=== PATIENT | male | born 2000 | race Caucasian/White ===

== ENCOUNTER 2024-09-07 10:57 | Outpatient (OUT) | payer BC, SELFPAY ==
--- NOTE | 2024-09-07 11:06 | ECG_ITS ---
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
[2024-09-07 11:59] LABS: Basophils Percent Auto 0.4 % (0.2-2.0); Eosinophils Absolute Auto 0.1 10^3/uL (0.0-0.7); Eosinophils Percent Auto 0.9 % (0.9-7.0); Hematocrit 48.7 % (42.0-54.0); Hemoglobin 16.5 g/dL (14.0-18.0); Immature Granulocytes Abs Auto 0.02 10^3/uL (0.00-0.03); Immature Granulocytes Pct Auto 0.2 % (0.0-0.5); Lymphocytes Absolute Auto 2.1 10^3/uL (1.2-3.8); Lymphocytes Percent Auto 22.6 % (20.5-60.0); Mean Corpuscular HGB Conc 33.9 g/dL (29.9-35.2); Mean Corpuscular Hemoglobin 29.9 pg (25.9-34.0); Mean Corpuscular Volume 88.4 fL (80.0-94.0); Mean Platelet Volume 9.4 fL (9.5-13.5); Monocytes Absolute Auto 0.6 10^3/uL (0.3-0.8); Monocytes Percent Auto 6.2 % (1.7-12.0); Neutrophils Absolute Auto 6.5 10^3/uL (1.4-6.5); Neutrophils Percent Auto 69.7 % (43.0-75.0); Platelet Count 268 10^3/uL (150-450); Red Blood Count 5.51 10^6/uL (4.70-6.10); Red Cell Distribution Width 11.6 % (11.0-15.0); White Blood Count 9.3 10^3/uL (4.0-11.0)
[2024-09-07 12:13] LABS: INR 0.98; Partial Thromboplastin Time 30.5 sec (22.3-36.2); Prothrombin Time 10.4 sec (9.0-11.6)
[2024-09-07 12:22] LABS: Anion Gap 12.4; BUN Creatinine Ratio 11.4; Calcium 9.1 mg/dL (8.5-10.1); Carbon Dioxide 27.5 mmol/L (21.0-32.0); Chloride 104 mmol/L (98-107); Estimated GFR (African America >60 (>=60 mL/min/1.73m^2); Estimated GFR (Non-African Ame >60 (>=60 mL/min/1.73m^2); Glucose 147 mg/dL (74-106); Potassium 3.9 mmol/L (3.5-5.1); Sodium 140 mmol/L (136-145)
== END 2024-09-07 10:58 | disposition home or self-care (01) ==
PROVIDERS: Visit Provider Urology
DX: Z01.810 Encounter for preprocedural cardiovascular examination (principal); Z01.812 Encounter for preprocedural laboratory examination; N47.1 Phimosis; N48.1 Balanitis
CPT/HCPCS: 80048; 85025; 85610; 85730; 93005

== ENCOUNTER 2024-09-24 07:59 | Day surgery (SDC) | payer BC, SELFPAY ==
[2024-09-07 11:51] VITALS: BP 134/90; PULSE 80; TEMP 36.4; O2SAT 100; BMI 38.8
[2024-09-24] VITALS (10 sets, daily range): BP systolic 97–153; BP diastolic 59–94; PULSE 72–107; TEMP 36.2–36.5; O2SAT 93–100; BMI 36.9
--- OUTSIDE RECORDS SUMMARY | 2024-09-24 08:04 | XMS_ITS | CCD ---
Author Organization [facility] Care Team Providers Care Ship Officer Name Role Phone NO FAMILY, PHYSICIAN Primary Care Provider DO Fredrick Swenson Emergency Provider [phone] Fredrick Morris Attending Unavailable Fredrick Morris Admitting Unavailable NO FAMILY, PHYSICIAN Primary Care Unavailable Alexander Hall Admitting Michael cm NO FAMILY, PHYSICIAN Primary Care Unavailable Alexander Hall Attending MD Alexander Rodriguez Attending Provider Adrien PÉREZ Attending Unavailable Adrien PÉREZ Attending Unavailable Adrien PÉREZ Attending Unavailable Allergies Allergy Classification Reported Allergen(s) Allergy Type Date of Onset Reaction(s) Facility (1 source) No Known Medication Allergies; Translations: [No Known Medication Allergies] Propensity to adverse reactions (disorder) [facility] Repository Medications Current Medications Medication Drug Class(es) Dates Sig (Normalized) Sig (Original) Blood-Glucose Meter misc (1 source) Start: 09-03-2024 Blood-Glucose Meter misc Active 0 .ROUTE .MEDSUPPLY September 03, 2024 12:00am as directed, defer to insurance preferred Tirzepatide (1 source) Start: 09-03-2024 Tirzepatide (Mounjaro) 2.5 mg/0.5 mL pen injector Active 2.5 MG SUBCUT every week 2 September 03, 2024 12:00am will have Voucher for 4 weeks, then copay card for ongoing rx Completed/Discontinued Medications Medication Drug Class(es) Dates Sig (Normalized) Sig (Original) metFORMIN hydrochloride 500 mg oral tablet (4 sources) Biguanide Start: 12-26-2023 End: 09-03-2024 take 1 tablet by mouth twice daily Metformin 500 mg tablet Discontinued 500 MG PO Twice daily 60 December 25, 2023 11:00pm September 03, 2024 9:00am Problems Problem Classification Problem Date Documented Date Episodic/Chronic Cardiac dysrhythmias (7 sources) Palpitations; Translations: [Palpitations] Onset: 12-26-2023 12-26-2023 Episodic Diabetes mellitus with complications (4 sources) Hyperglycemia due to type 2 diabetes mellitus; Translations: [Type 2 diabetes mellitus with hyperglycemia] 09-03-2024 Chronic Diabetes mellitus without complication (5 sources) Diabetes mellitus; Translations: [Type 2 diabetes mellitus without complications] 12-26-2023 Chronic Diabetes mellitus without complication (5 sources) Prediabetes; Translations: [Prediabetes] Onset: 06-10-2024 01-14-2024 Episodic Inflammatory conditions of male genital organs (2 sources) Balanitis; Translations: [Balanitis] Onset: 06-10-2024 Chronic Nutritional deficiencies (2 sources) Vitamin D deficiency; Translations: [Vitamin D deficiency, unspecified] 09-03-2024 Chronic Other male genital disorders (2 sources) Phimosis; Translations: [Phimosis] 06-10-2024 Episodic Other male genital disorders (1 source) Phimosis; Translations: [Redundant prepuce and phimosis] 09-03-2024 Episodic Results Test Name Value Interpretation Reference Range Facility HbA1c HPLC (Bld) [Mass fract ion]on 09-03-2024 HbA1c (Bld) [Mass fraction] Hemoglobin A1c/Hemoglobin.tota l in Blood by HPLC [facility] No Panel Informationon 09-03 Bedside Glucose [address] [facility] Ambulatory Visit Summaryon 1 Ambulatory Visit Summary Ambulatory Visi t Summary SCOTT DEAN Jim :2000 Visit Date:06/10/2024 Ambulatory Visit Instructions Your Diagnosis Phimosis Balanitis Glucosuria Your Care Team Attending Physician - Adrien PÉREZ MD Procedures Performed None. Discharge Vitals Heart Rate (Peripheral) 77 Respiratory Rate 18 Blood Pressure 148/95 Height 71 in Height 180 cm Weight 277.64 lb Weight 126.2 kg BMI 38.95 What to do next You Need to Schedule the Following Appointments Follow Up with ISMAEL PERES, Adrien Gaxiola, URL When: Where: [facility] [address] , [place] [address]- Allergies No Known Medication Allergies Problems Ongoing - Any problem that you are currently receiving treatment for. Balanitis Diabetes Phimosis Patient Survey You may receive a survey via text or e-mail asking about your office visit. Please share your experience with us by completing your survey. We appreciate your feedback and thank you for choosing us for your care. Education Materials Balanitis Balanitis is swelling and irritation of the head of the penis (glans penis). Balanitis occurs most often among males who have not had their foreskin removed (uncircumcised). In uncircumcised males, the condition may also cause inflammation of the skin around the foreskin. Balanitis sometimes causes scarring of the penis or foreskin, which can require surgery. This condition may develop because of an infection or another medical condition. Untreated balanitis can increase the risk of penile cancer. What are the causes? Common causes of this condition include: ? Irritation and lack of airflow due to fluid (smegma) that can build up on the glans penis. ? Poor personal hygiene, especially in uncircumcised males. Not cleaning the glans penis and foreskin well can result in a buildup of bacteria, viruses, and yeast, which can lead to infection and inflammation. Other causes include: ? Chemical irritation from products such as soaps or shower gels, especially those that have fragrance. Chemical irritation can also be caused by condoms, personal lubricants, petroleum jelly, spermicides, fabric softeners, or laundry detergents. ? Skin conditions, such as eczema, dermatitis, and psoriasis. ? Allergies to medicines, such as tetracycline and sulfa drugs. What increases the risk? The following factors may make you more likely to develop this condition: ? Being an uncircumcised male. ? Having diabetes. ? Having other medical conditions, including liver cirrhosis, congestive heart failure, or kidney disease. ? Having infections, such as candidiasis, HPV (human papillomavirus), herpes simplex, gonorrhea, or syphilis. ? Having a tight foreskin that is difficult to pull back (retract) past the glans penis. ? Being severely obese. ? History of reactive arthritis. What are the signs or symptoms? Symptoms of this condition include: ? Discharge from under the foreskin, and pain or difficulty retracting the foreskin. ? A bad smell or itchiness on the penis. ? Tenderness, redness, and swelling of the glans penis. ? A rash or sores on the glans penis or foreskin. ? Inability to get an erection due to pain. ? Trouble urinating. ? Scarring of the penis or foreskin, in some cases. How is this diagnosed? This condition may be diagnosed based on a physical exam and tests of a swab of discharge to check for bacterial or fungal infection. You may also have blood tests to check for: ? Viruses that can cause balanitis. ? A high blood sugar (glucose) level. This could be a sign of diabetes, which can increase the risk of balanitis. How is this treated? Treatment for this condition depends on the cause. Treatment may include: ? Improving personal hygiene. Your health care provider may recommend sitting in a bath of warm water that is deep enough to cover your hips and buttocks (sitz bath). ? Medicines such as: ? Creams or ointments to reduce swelling (steroids) or to treat an infection. ? Antibiotic medicine. ? Antifungal medicine. ? Having surgery to remove or cut the foreskin (circumcision). This may be done if you have scarring on the foreskin that makes it difficult to retract. ? Controlling other medical problems that may be causing your condition or making it worse. Follow these instructions at home: Medicines ? Take lqcy-kdh-gmhaave and prescription medicines only as told by your health care provider. ? If you were prescribed an antibiotic medicine, use it as told by your health care provider. Do not stop using the antibiotic even if you start to feel better. General instructions ? Do not have sex until the condition clears up, or until your health care provider approves. ? Keep your penis clean and dry. Take sitz baths as recommended by your health care provider. ? Avoid (more content not included)... Normal [facility]PG ECG *OFFICE ONLY*on FPG ECG *OFFICE ONLY* [facility] Main [place] [address] [place] [id number] Electrocardiograph Report Signed Patient: Scott Dean MR#: [id number] [birth year] : 2000 Acct:[id number] Age/Sex: 23 / M ADM Date: 01/14/24 Loc: EKGCARDIO Room: Type: [facility] Attending Dr: Alexander Hall MD Ordering Provider: Alexander Hall MD Date of Service: 01/14/2404/01/1306 ECG/FPG ECG *OFFICE ONLY*: R00.2 - Palpitations Copies to: Test Reason : Blood Pressure : / mmHG Vent. Rate : 090 BPM Atrial Rate : 090 BPM P-R Int : 144 ms QRS Dur : 092 ms QT Int : 336 ms P-R-T Axes : 047 097 030 degrees QTc Int : 411 ms Normal sinus rhythm Rightward axis Borderline ECG When compared with ECG of 26-DEC-2023 07:43, Criteria for Inferior infarct are no longer present Confirmed by Alexander Hall ([id number]) on 01/15/2024 8:58:06 AM Referred By: Electronically Signed By:Alexander Hall Transcribed By: MUS Signed By Alexander Hall MD 01/15/24 0858 Normal [facility] Basic Metabolic Panelon 12-08 Anion gap [Moles/Vol] 8.0 mmol/L Normal 6.0-15.0 [facility] Comment on above: Performed By: #### C BC, HS TROP, BMP #### [facility] [address] [id number] [place] Calcium [Mass/Vol] 9.6 mg/dL Normal 8.6-10.3 [facility] Comment on above: Performed By: #### C BC, HS TROP, BMP #### [facility] [address] [id number] [place] Chloride [Moles/Vol] 101 mmol/L Normal 98-107 [facility] Comment on above: Performed By: #### C BC, HS TROP, BMP #### [facility] [address] [place] [address] [place] CO2 [Moles/Vol] 28.7 mmol/L Normal 21.0-31.0 [facility] Comment on above: Performed By: #### C BC, HS TROP, BMP #### [facility] [address] [place] [address] [place] Creatinine [Mass/Vol] 0.66 mg/dL Low 0.70-1.30 [facility] Comment on above: Performed By: #### C BC, HS TROP, BMP #### [place] [address] [place] Creatinine Clr Calc Pharmacy 230.95 Normal [facility] Comment on above: Result Comment: PERF ORMED BY: [place] [address] PATHOLOGIST ACUTE DIALYSIS NURSE IRIS GOVEA M.D. Performed By: #### C BC, HS TROP, BMP #### [place] [address] [place] GFR/1.73 sq M.predicted MDRD (S/P/Bld) [Vol rate/Area] mL/min/{1.73_m2} Normal [facility] Comment on above: Performed By: #### C BC, HS TROP, BMP #### [place] [address] [place] Glucose [Mass/Vol] 231 mg/dL High 70-100 [facility] Comment on above: Result Comment: [place] Glucose Reference Range is dependent on time and content of last meal. Glucose of more than 200 mg/dL in a nonstressed, ambulatory subject supports the diagnosis of Diabetes Mellitus. ADA recommended reference range Performed By: #### C BC, HS TROP, BMP #### [place] [address] [place] Potassium [Moles/Vol] 3.7 mmol/L Normal 3.5-5.1 [facility] Comment on above: Performed By: #### C BC, HS TROP, BMP #### [place] [address] [place] Sodium [Moles/Vol] 134 mmol/L Low 136-145 [facility] Comment on above: Performed By: #### C BC, HS TROP, BMP #### [place] [address] [place] Urea nitrogen [Mass/Vol] 12 mg/dL Normal 7-25 [facility] Comment on above: Performed By: #### C BC, HS TROP, BMP #### [facility] [address] Basophils Auto (Bld) [#/Vol] Ordered By: Fredrick Morris on 12-26-2023 Basophils (Bld) [#/Vol] 0.0 10*3/uL 0.0-0.[address] [facility] Basophils/100 WBC Auto (Bld) Ordered By: Fredrick Morrsi on 12-26-2023 Basophils/100 WBC (Bld) 0.4 % . [facility] COVID CepheidOrdered By: Marietta Morris on 12-26-2023 SARS-CoV-2 (COVID-19) Ab IA Ql Negative Negative [facility] Comment on above: This is a duplicate Cepheid Xpert Xpress CoV-2/Flu/RSV Plus RNA by RT-PCR result to be used for statistical tracking purpose only. SARS-CoV-2 (COVID-19) RNA MIRTA+probe Ql (Unsp spec) [facility] COVID-19 / Flu A/B / RSV PCR on 12-26-2023 SARS-CoV-2 (COVID-19) RNA MIRTA+probe Ql (Unsp spec) COVID-19 Cepheid Result Negative for SARS-CoV-2 RNA by RT-PCR Flu A Cepheid Result Negative for Flu A RNA by RT-PCR Flu B Cepheid Result Negative for Flu B RNA by RT-PCR RSV Cepheid Result Negative for RSV RNA by RT-PCR COVID19 Blank Space Reference: Negative COVID19 Blank Space Cepheid Disclaimer The Cepheid Xpert Xpress CoV-2/Flu/RSV Plus has Cepheid Disclaimer not been FDA cleared or approved; this test has Cepheid Disclaimer been authorized by FDA under an EUA for use by Cepheid Disclaimer authorized laboratories; this test has been Cepheid Disclaimer authorized only for the simultaneous qualitative Cepheid Disclaimer detection and differentiation of nucleic acids from Cepheid Disclaimer SARS-CoV-2, influenza A, influenza B, and Cepheid Disclaimer respiratory syncytial virus (RSV), and not for any Cepheid Disclaimer other viruses or pathogens; and this test is only Cepheid Disclaimer authorized for the duration of the declaration that Cepheid Disclaimer circumstances exist justifying the authorization of Cepheid Disclaimer emergency use of in vitro diagnostic tests for Cepheid Disclaimer detection and/or diagnosis of COVID-19 under Cepheid Disclaimer Section 564(b)(1) of the Act, 21 U.S.C. 360bbb- Cepheid Disclaimer 3(b)(1), unless the authorization is terminated or Cepheid Disclaimer revoked sooner. PERFORMED BY: [address] [id number] PATHOLOGIST ACUTE DIALYSIS NURSE IRIS GOVEA M.D. Normal [facility] Comment on above: Performed By: #### C EPHEID NEG, COVID19 FLU RSV #### [address] [address] [facility] Calcium [Mass/volume] in Ser um or PlasmaOrdered By: Fredrick Morris on 12-26-2023 Calcium [Mass/Vol] 9.6 mg/dL 8.6-10.3 [facility] Carbon dioxide, total [Moles /volume] in Serum or PlasmaOrdered By: Fredrick Morris on 12-26-2023 CO2 [Moles/Vol] 28.7 mmol/L 21.0-31.0 [facility] Cepheid COVID PCR Negativeon 12-26-2023 SARS-CoV-2 (COVID-19) RNA MIRTA+probe Ql (Unsp spec) Negative Normal Negative [facility] Comment on above: Result Comment: This is a duplicate Cepheid Xpert Xpress CoV-2/Flu/RSV Plus RNA by RT-PCR result to be used for statistical tracking purpose only. PERFORMED BY: [address] [id number] PATHOLOGIST ACUTE DIALYSIS NURSE IRIS GOVEA M.D. Performed By: #### C EPHEID NEG, COVID19 FLU RSV #### [address] Chloride [Moles/volume] in S barbara or PlasmaOrdered By: Fredrick Morris on 12-26-2023 Chloride [Moles/Vol] 101 mmol/L 98-[address] [facility] Complete Blood Count Auto Di ffon 12-26-2023 Basophils (Bld) [#/Vol] 0.0 10*3/uL Normal 0.0-0.2 [facility] Comment on above: Result Comment: PERF ORMED BY: [place] [address] PATHOLOGIST ACUTE DIALYSIS NURSE IRIS GOVEA M.D. Performed By: #### C BC, HS TROP, BMP #### [address] Basophils/100 WBC (Bld) 0.4 % Normal . [facility] Comment on above: Performed By: #### C BC, HS TROP, BMP #### [place] [address] [place] Eosinophils (Bld) [#/Vol] 0.1 10*3/uL Normal 0.0-0.45 [facility] Comment on above: Performed By: #### C BC, HS TROP, BMP #### [place] [address] [place] Eosinophils/100 WBC (Bld) 1.2 % Normal . [facility] Comment on above: Performed By: #### C BC, HS TROP, BMP #### [address] Erythrocyte distribution width (RBC) [Ratio] 12.8 % Normal 12.0-14.8 [facility] Comment on above: Performed By: #### C BC, HS TROP, BMP #### [address] Hematocrit (Bld) [Volume fraction] 45.3 % Normal 38.8-50.0 [facility] Comment on above: Performed By: #### C BC, HS TROP, BMP #### [address] Hemoglobin (Bld) [Mass/Vol] 15.3 g/dL Normal 13.0-17.0 [facility] Comment on above: Performed By: #### C BC, HS TROP, BMP #### [address] Lymphocytes (Bld) [#/Vol] 1.9 10*3/uL Normal 1.00-4.8 [facility] Comment on above: Performed By: #### C BC, HS TROP, BMP #### [address] Lymphocytes/100 WBC (Bld) 24.7 % Normal . [facility] Comment on above: Performed By: #### C BC, HS TROP, BMP #### [address] MCH (RBC) [Entitic mass] 29.5 pg Normal 27.5-35.2 [facility] Comment on above: Performed By: #### C BC, HS TROP, BMP #### [address] MCV (RBC) [Entitic vol] 87.4 fL Normal 83.5-101 [facility] Comment on above: Performed By: #### C BC, HS TROP, BMP #### [address] Mean Corpuscular HGB Conc 33.8 g/dL Normal 32.5-35.6 [facility] Comment on above: Performed By: #### C BC, HS TROP, BMP #### [address] Monocytes (Bld) [#/Vol] 0.7 10*3/uL Normal 0.0-0.8 [facility] Comment on above: Performed By: #### C BC, HS TROP, BMP #### [place] [id number] [place] Monocytes/100 WBC (Bld) 18.25 % Normal 0.00-20.00 [facility] Comment on above: Performed By: #### C BC, HS TROP, BMP #### [facility] [address] [place] [address] [place] Monocytes/100 WBC (Bld) 8.5 % Normal . [facility] Comment on above: Performed By: #### C BC, HS TROP, BMP #### [place] [address] [place] Neutrophils (Bld) [#/Vol] 5.1 10*3/uL Normal 1.8-7.7 [facility] Comment on above: Performed By: #### C BC, HS TROP, BMP #### [address] Neutrophils/100 WBC (Bld) 65.2 % Normal . [facility] Comment on above: Performed By: #### C BC, HS TROP, BMP #### [place] [address] [place] NRBC% 0.2 /100{WBC} Normal 0-0.5 [facility] Comment on above: Performed By: #### C BC, HS TROP, BMP #### [place] [address] [place] Platelet mean volume (Bld) [Entitic vol] 7.7 fL Normal 6.6-10.1 [facility] Comment on above: Performed By: #### C BC, HS TROP, BMP #### [place] [address] [place] Platelets (Bld) [#/Vol] 234 10*3/uL Normal 150-450 [facility] Comment on above: Performed By: #### C BC, HS TROP, BMP #### [place] [address] [place] RBC (Bld) [#/Vol] 5.18 10*6/uL Normal 3.90-5.60 [facility] Comment on above: Performed By: #### C BC, HS TROP, BMP #### [facility] [address] [place] [address] [place] WBC (Bld) [#/Vol] 7.8 10*3/uL Normal 4.1-10.5 [facility] Comment on above: Performed By: #### C BC, HS TROP, BMP #### [facility] [address] Creatinine [Mass/volume] in Serum or PlasmaOrdered By: Fredrick Morris on 12-26-2023 Creatinine [Mass/Vol] 0.66 mg/dL 0.70-1.30 [facility] ECG 12 lead ECGon 12-26-2023 ECG 12 lead ECG [facility] Main [place] [address] [place] [address] Electrocardiograph Report Signed Patient: Scott Dean MR#: [id number] [birth year] : 2000 Acct:[id number] Age/Sex: 23 / M ADM Date: 12/26/23 Loc: ER Room: Type: [facility] Attending Dr: Ordering Provider: Fredrick Morris DO Date of Service: 12/26/23 ECG/ECG 12 lead ECG: Upper Respiratory Infection Copies to: Test Reason : Blood Pressure : / mmHG Vent. Rate : 077 BPM Atrial Rate : 077 BPM P-R Int : 136 ms QRS Dur : 100 ms QT Int : 360 ms P-R-T Axes : 015 043 -07 degrees QTc Int : 407 ms Normal sinus rhythm Moderate voltage criteria for LVH, may be normal variant Inferior infarct , age undetermined Abnormal ECG No previous ECGs available Confirmed by FREDRICK MORRIS DO ([id number]) on 12/27/2023 6:11:01 AM Referred By: Electronically Signed By:FREDRICK MORRIS DO Transcribed By: MUS Signed By Fredrick Morrsi DO 12/26 0611 Normal [facility] Eosinophils Auto (Bld) [#/Vo l]Ordered By: Fredrick Morris on 12-26-2023 Eosinophils (Bld) [#/Vol] 0.1 10*3/uL 0.0-0.[address] [facility] Eosinophils/100 WBC Auto (Bl d)Ordered By: Fredrick Morris on 12-26-2023 Eosinophils/100 WBC (Bld) 1.2 % . [facility] Erythrocyte distribution wid th Auto (RBC) [Ratio]Ordered By: Fredrick Morris on 12-26-2023 Erythrocyte distribution width (RBC) [Ratio] 12.8 % 12.0-14.[address] [facility] Glucose [Mass/volume] in Ser um or PlasmaOrdered By: Fredrick Morris on 12-26-2023 Glucose [Mass/Vol] 231 mg/dL 70-100 [facility] Comment on above: ADA recommended refe rence rangeRandom Glucose Reference Range is dependent on time and content of last meal. Glucose of more than 200 mg/dL in a nonstressed, ambulatory subject supports the diagnosis of Diabetes Mellitus. Hematocrit Auto (Bld) [Volum e fraction]Ordered By: Fredrick Morris on 12-26-2023 Hematocrit (Bld) [Volume fraction] 45.3 % 38.8-50.[address] [facility] Hemoglobin [Mass/volume] in BloodOrdered By: Fredrick Morris on 12-26-2023 Hemoglobin (Bld) [Mass/Vol] 15.3 g/dL 13.0-17.[address] [facility] Leukocytes [#/volume] correc willow for nucleated erythrocytes in Blood by Automated counOrdered By: Fredrick Morris on 12-26-2023 WBC corrected for nucl RBC Auto (Bld) [#/Vol] 7.8 10*3/uL 4.1-10.[address] [facility] Lymphocytes Auto (Bld) [#/Vo l]Ordered By: Fredrick Morris on 12-26-2023 Lymphocytes (Bld) [#/Vol] 1.9 10*3/uL 1.00-4.[address] [facility] Lymphocytes/100 WBC Auto (Bl d)Ordered By: Fredrick Morris on 12-26-2023 Lymphocytes/100 WBC (Bld) 24.7 % . [facility] MCH Auto (RBC) [Entitic mass ]Ordered By: Fredrick Morris on 12-26-2023 MCH (RBC) [Entitic mass] 29.5 pg 27.5-35.[address] [facility] MCHC Auto (RBC) [Mass/Vol]Or dered By: Fredrick Morris on 12-26-2023 MCHC (RBC) [Mass/Vol] 33.8 g/dL 32.5-35.6 [facility] MCV Auto (RBC) [Entitic vol] Ordered By: Fredrick Morris on 12-26-2023 MCV (RBC) [Entitic vol] 87.4 fL 83.5-101 [facility] Monocyte distribution width [Entitic volume] in Blood by AutomatedOrdered By: Fredrick Morris on 12-26-2023 Monocyte distribution width Auto (Bld) [Entitic vol] 18.25 % 0.00-20.[address] [facility] Monocytes Auto (Bld) [#/Vol] Ordered By: Fredrick Morris on 12-26-2023 Monocytes (Bld) [#/Vol] 0.7 10*3/uL 0.0-0.[address] [facility] Monocytes/100 WBC Auto (Bld) Ordered By: Fredrick Morris on 12-26-2023 Monocytes/100 WBC (Bld) 8.5 % . [facility] Neutrophils Auto (Bld) [#/Vo l]Ordered By: Fredrick Morris on 12-26-2023 Neutrophils (Bld) [#/Vol] 5.1 10*3/uL 1.8-7.[address] [facility] Neutrophils/100 WBC Auto (Bl d)Ordered By: Fredrick Morris on 12-26-2023 Neutrophils/100 WBC (Bld) 65.2 % . [facility] No Panel InformationOrdered By: Fredrick Morris on 12-26-2023 Estimated GFR (CKD-EPI) > 60.0 mL/Min [facility] Pharm[facility] Creatinine Clearance (Chem 230.[address] [facility] Nucleated erythrocytes [Pres ence] in Blood by Automated countOrdered By: Fredrick Morris on 12-26-2023 Nucleated RBC Auto Ql (Bld) 0.2 /100{WBC} 0-0.[address] [facility] Platelet mean volume Auto (B ld) [Entitic vol]Ordered By: Fredrick Morris on 12-26-2023 Platelet mean volume (Bld) [Entitic vol] 7.7 fL 6.6-10.[address] [facility] Platelets Auto (Bld) [#/Vol] Ordered By: Fredrick Morris on 12-26-2023 Platelets (Bld) [#/Vol] 234 10*3/uL 150-[address] [facility] Potassium [Moles/volume] in Serum or PlasmaOrdered By: Fredrick Morris on 12-26-2023 Potassium [Moles/Vol] 3.7 mmol/L 3.5-5.1 [facility] RBC Auto (Bld) [#/Vol]Ordere d By: Fredrick Morris on 12-26-2023 RBC (Bld) [#/Vol] 5.18 10*6/uL 3.90-5.60 [facility] Serum or plasma anion gap de terminationOrdered By: Fredrick Morris on 12-26-2023 Anion gap [Moles/Vol] 8.0 mmol/L 6.0-15.0 [facility] Sodium [Moles/volume] in Ser um or PlasmaOrdered By: Fredrick Morris on 12-26-2023 Sodium [Moles/Vol] 134 mmol/L 136-145 [facility] Troponin I High Sensitivityo n 12-26-2023 Troponin I High Sensitivity 3.0 pg/mL Normal 0.0-20.0 [facility] Comment on above: Result Comment: PERF ORMED BY: [place] [address] PATHOLOGIST ACUTE DIALYSIS NURSE IRIS GOVEA M.D. Performed By: #### C BC, HS TROP, BMP #### [address] Troponin I.cardiac [Mass/vol ume] in Serum or Plasma by Detection limit <= 0.01 ng/Ordered By: Fredrick Morris on 12-26-2023 Troponin I.cardiac DL <= 0.01 ng/mL [Mass/Vol] 3.0 pg/mL 0.0-20.[address] [facility] Urea nitrogen [Mass/volume] in Serum or PlasmaOrdered By: Fredrick Morris on 12-26-2023 Urea nitrogen [Mass/Vol] 12 mg/dL 7-[address] [facility] WBC Auto (Bld) [#/Vol]Ordere d By: Fredrick Morris on 12-26-2023 WBC (Bld) [#/Vol] 7.8 10*3/uL 4.1-10.5 [facility] XR chest 1V portableon 12-25 XR chest 1V portable [facility] Main [address] [address] XRay Report Signed Patient: Scott Dean MR#: [id number] : 2000 Acct:[id number] Age/Sex: 23 / M ADM Date: 12/26/23 Loc: ER Room: Type: [facility] ER Attending Dr: Copies to: Fredrick Morris DO Ordering Provider: Fredrick Morris DO Date of Service: 12/26/23 XR/XR chest 1V portable: Upper Respiratory Infection PORTABLE AP ERECT CHEST 0811 hours CLINICAL HISTORY: Palpitations COMPARISON: None Assessment is slightly limited by large body habitus. The heart is within normal limits. There is no vascular congestion. No consolidation is noted. There is no effusion or pneumothorax. The osseous structures are intact. XR/XR chest 1V portable IMPRESSION: NO ACUTE FINDINGS Impression dictated by: Ginny Samayoa M.D.12/26/2023 8:24 AM Dictation Location: [place] [address] Transcribed By: [facility] 12/26/23823 Dictated By: Ginny Samayoa MD 12/26/23822 Signed By: 12/26/23823 Normal [facility] Vital Signs Date Time Vital Sign Value Performing Clinician Faci brigitte 09-03-2024 08:46-0500 Body height 176.53 cm [facility] 09-03-2024 08:46-0500 Body mass index (BMI) [Ratio] 38.9 kg/m2 [facility] 09-03-2024 08:46-0500 Body weight 121.16 kg [facility] 09-03-2024 08:46-0500 Diastolic blood pressure 84 mm[Hg] [facility] 09-03-2024 08:46-0500 Heart rate 83 /min [facility] 09-03-2024 08:46-0500 Respiratory rate 18 /min [facility] 09-03-2024 08:46-0500 SaO2% (BldA) [Mass fraction] 99 % [facility] 09-03-2024 08:46-0500 Systolic blood pressure 130 mm[Hg] [facility] 06-10-2024 09:18-0400 Diastolic blood pressure 95 mm[Hg] Adrien PÉREZ [facility] 06-10-2024 09:18-0400 Heart rate 77 /min Adrien PÉREZ [facility] 06-10-2024 09:18-0400 Mean blood pressure 113 mm[Hg] Adrien PÉREZ [facility] 06-10-2024 09:18-0400 Systolic blood pressure 148 mm[Hg] Adrien PÉREZ [facility] 06-10-2024 09:05-0400 Blood Pressure Location Adrien PÉREZ [facility] 06-10-2024 09:05-0400 Diastolic blood pressure 96 mm[Hg] Adrien PÉREZ [facility] 06-10-2024 09:05-0400 Heart rate 84 /min Adrien PÉREZ [facility] 06-10-2024 09:05-0400 Respiratory rate 18 /min Adrien PÉREZ [facility] 06-10-2024 09:05-0400 Systolic blood pressure 151 mm[Hg] Adrien PÉREZ [facility] 01-14-2024 13:13-0400 Body height 177.8 cm PHYSICIAN DONNA SALVADOR [facility] 01-14-2024 13:13-0400 Body mass index (BMI) [Ratio] 38.9 kg/m2 PHYSICIAN NO [facility] 01-14-2024 13:13-0400 Body weight 122.92 kg PHYSICIAN NO [facility] 01-14-2024 13:13-0400 Diastolic blood pressure 80 mm[Hg] PHYSICIAN NO [facility] 01-14-2024 13:13-0400 Heart rate 90 /min PHYSICIAN NO [facility] 01-14-2024 13:13-0400 Respiratory rate 18 /min PHYSICIAN NO [facility] 01-14-2024 13:13-0400 SaO2% (BldA) [Mass fraction] 98 % PHYSICIAN NO [facility] 01-14-2024 13:13-0400 Systolic blood pressure 110 mm[Hg] PHYSICIAN NO [facility] 12-26-2023 08:45-0400 Diastolic blood pressure 68 mm[Hg] PHYSICIAN NO [facility] 12-26-2023 08:45-0400 Heart rate 81 /min PHYSICIAN NO [facility] 12-26-2023 08:45-0400 Respiratory rate 16 /min PHYSICIAN NO [facility] 12-26-2023 08:45-0400 SaO2% (BldA) [Mass fraction] 98 % PHYSICIAN NO [facility] 12-26-2023 08:45-0400 Systolic blood pressure 122 mm[Hg] PHYSICIAN NO [facility] 12-26-2023 07:29-0400 Body height 177.8 cm PHYSICIAN NO [facility] 12-26-2023 07:29-0400 Body temperature 98 [degF] PHYSICIAN NO [facility] 12-26-2023 07:29-0400 Body weight 125 kg PHYSICIAN NO [facility] Encounters Encounter Date Encounter Type Care Provider Facility Start: 10-21-2024 ambulatory Adrien Naqvi ty:KYE Snow Start: 09-24-2024 ambulatory Adrien Naqvi ty:[id number] Start: 09-16-2024 End: 09-16-2024 ambulatory [facility] Work Phone: Start: 09-16-2024 End: 09-16-2024 Patient encounter procedure [facility] Work Phone: Start: 09-07-2024 End: 09-07-2024 Patient encounter procedure [facility] Work Phone: Start: 09-03-2024 End: 09-03-2024 Patient encounter procedure [facility] Work Phone: Start: 06-10-2024 End: 06-10-2024 ambulatory Adrien PÉREZ Facility: [facility] Start: 06-10-2024 End: 06-10-2024 Patient encounter procedure Adrien PÉREZ [facility] Start: 01-14-2024 End: 01-14-2024 ambulatory Alexander Hall Facility:[facility] Start: 01-14-2024 End: 01-14-2024 ambulatory PHYSICIAN NO [facility] Work Phone: Start: 01-14-2024 End: 01-14-2024 Patient encounter procedure PHYSICIAN NO [facility] Physician [facility] Work Phone: Start: 12-26-2023 End: 12-26-2023 Emergency department patient visit Fredrick Morris Facility:[facility] Start: 12-26-2023 End: 12-26-2023 Emergency department patient visit PHYSICIAN NO [facility] Work Phone: Procedures Date Procedure Procedure Detail Performing Clinician Start: 12-26-2023 SARS-CoV-2, Influenz a & RSV (PCR) PHYSICIAN NO FAMILY Start: 12-26-2023 Plain chest X-ray PHYSI CHIOMA NO FAMILY None (qualifier value) Warren PÉREZ Plan of Treatment Date Care Activity Detail Author Start: 01-14-[address] [facility] Start: 12-26-2023 Holter monitor study [facility] Comprehensive metabo lic 2000 panel - Serum or Plasma [facility] Patient Education Diabetes and d iet Palpitations ED [facility] Work Phone: Patient referral [facility] Work Phone: [facility] Payers Date Payer Category Payer Unknown [id number] 2024 Unknown [id number] 2023 Self-pay 2023 Unknown [id number] 2000 Unknown [id number] [id number] 2000 Unknown [id number] [id number] [id number] 2000 Unknown [id number] [id number] [id number] Unknown [id number] 2.16.8 [id number] Unknown [id number] 2.16.8 [id number] Unknown Girish CARROLL/KULDIP [id number] Social History Date Type Detail Facility Start: 12-26-2023 End: 09-03-2024 Tobacco smoking status NHIS Never smoked tobacco (finding) [facility] Start: 2000 Sex Assigned At Male F [facility] Tobacco smoking status No Smokin g Status Entered [facility] Sex Assigned At Male [facility] Start: 09-16-2024 Sex Male (finding) [facility] Medical Equipment Procedure Code Equipment Code Equipment Origin al Text Equipment Identifier Dates Blood Sugar Diagnostic strip Start: 09-03-2024 Lancets misc Start: 09-03-2024 Functional Status Date Assessment Result Facility 06-10-2024 Functional Status N/A [facility] Clinical Notes 06-10-2024 to 09-03-2024 Note Date & Type Note Facility 09-03-2024 Evaluation note Diagnosis Onset Date Resolution Phimosis acute September 03, 2024 8:34am Pre-diabetes acute August 8:34am Type 2 diabetes mellitus with hyperglycemia acute August 8:34am Vitamin D deficiency, unspecified acute September 03, 024 8:34am Type 2 diabetes mellitus with hyperglycemia acute August 3:20pm Type 2 diabetes mellitus with hyperglycemia acute September 16, 2024 8:02am [facility] Work Phone: 1(184) 318-325710-02-2024 Hospital Discharge instructions Patient Education 06/10/2024 09:54:18 Balanitis Balanitis Balanitis is swelling and irritation of the head of the penis (glans penis). Balanitis occurs most often among males who have not had their foreskin removed (uncircumcised). In uncircumcised males, the condition may also cause inflammation of the skin around the foreskin. Balanitis sometimes causes scarring of the penis or foreskin, which can require surgery. This condition may develop because of an infection or another medical condition. Untreated balanitis can increase the risk of penile cancer. What are the causes? Common causes of this condition include: Irritation and lack of airflow due to fluid (smegma) that can build up on the glans penis. Poor personal hygiene, especially in uncircumcised males. Not cleaning the glans penis and foreskinwell can result in a buildup of bacteria, viruses, and yeast, which can lead to infection and inflammation. Other causes include: Chemical irritation from products such as soaps or shower gels, especially those that have fragrance. Chemical irritation can also be caused by condoms, personal lubricants, petroleum jelly, spermicides, fabric softeners, or laundry detergents. Skin conditions, such as eczema, dermatitis, and psoriasis. Allergies to medicines, such as tetracycline and sulfa drugs. What increases the risk? The following factors may make you more likely to develop this condition: Being an uncircumcised male. Having diabetes. Having other medical conditions, including liver cirrhosis, congestive heart failure, or kidney disease. Having infections, such as candidiasis, HPV (human papillomavirus), herpes simplex, gonorrhea, or syphilis. Having a tight foreskin that is difficult to pull back (retract) past the glans penis. Being severely obese. History of reactive arthritis. What are the signs or symptoms? Symptoms of this condition include: Discharge from under the foreskin, and pain or difficulty retracting the foreskin. A bad smell or itchiness on the penis. Tenderness, redness, and swelling of the glans penis. A rash or sores on the glans penis or foreskin. Inability to get an erection due to pain. Trouble urinating. Scarring of the penis or foreskin, in some cases. How is this diagnosed? This condition may be diagnosed based on a physical exam and tests of a swab of discharge to check for bacterial or fungal infection. You may also have blood tests to check for: Viruses that can cause balanitis. A high blood sugar (glucose) level. This could be a sign of diabetes, which can increase the risk of balanitis. How is this treated? Treatment for this condition depends on the cause. Treatment may include: Improving personal hygiene. Your health care provider may recommend sitting in a bath of warm waterthat is deep enough to cover your hips and buttocks (sitz bath). Medicines such as: ?Creams or ointments to reduce swelling (steroids) or to treat an infection. ?Antibiotic medicine. ?Antifungal medicine. Having surgery to remove or cut the foreskin (circumcision). This may be done if you have scarring on the foreskin that makes it difficult to retract. Controlling other medical problems that may be causing your condition or making it worse. Follow these instructions at home: Medicines Take gbtf-jgk-whnlagy and prescription medicines only as told by your health care provider. If you were prescribed an antibiotic medicine, use it as told by your health care provider. Do not stop using the antibiotic even if you start to feel better. General instructions Do not have sex until the condition clears up, or until your health care provider approves. Keep your penis clean and dry. Take sitz baths as recommended by your health care provider. Avoid products that irritate your skin or make symptoms worse, such as soaps and shower gels that have fragrance. Keep all follow-up visits. This is important. Contact a health care provider if: Your symptoms get worse or do not improve with home care. You develop chills or a fever. You have trouble urinating. You cannot retract your foreskin. Get help right away if: You develop severe pain. You are unable to urinate. Summary Balanitis is swelling and irritation of the head of the penis (glans penis). This condition is mostcommon among uncircumcised males. Balanitis causes pain, redness, and swelling of the glans penis. Good personal hygiene is important. Treatment may include improving personal hygiene and applying creams or ointments. Contact a health care provider if your symptoms get worse or do not improve with home care. This information is not intended to replace advice given to you by your health care provider. Make sure you discuss any questions you have with your health care provider. Document Revised: 02/07/2022 Document Reviewed: 02/07/2022 [employer] Patient Education 2023 [employer]. 06/10/2024 09:46:31 Circumcision Information Circumcision Information Male infants are born with a fold of skin that covers the head of the penis (foreskin). This fold of skin is often removed shortly after with a surgery that is called circumcision. A circumcision may be done by a health care provider who is involved in care or by a specialist who cares for the urinary tract (urologist). Circumcisions may also be done in non-medical settings for anglican or cultural reasons. Who should be circumcised? The decision to leave the foreskin on or to have it removed is a personal one. It is often based onreligious, social, or cultural beliefs. Circumcision is most often done in the first few days of life, but it may also be done later in life. In general: All healthy boys with a normal penis formation can be circumcised in the first few days after . Boys who are born early (prematurely) or who are ill should not be circumcised until they are olderand stronger. Boys with certain deformities of the penis or deformities of the opening of the penis (urethra) should not be circumcised. How is circumcision done? The penis and the area around it are cleansed well. An injection may be given to numb the area. A numbing cream may be applied to the area. A special clamp or ring is attached to the penis and used to remove the foreskin. The area is then cleansed well again. Medicine and gauze are applied to it. What are the benefits of circumcision? When the foreskin is removed: The head of the penis is easier to wash. This lowers the risk for odors, swelling, and infection. Some men are less likely to: ?Carry the virus that causes genital warts (human papillomavirus or HPV). ?Contract human immunodeficiency virus (HIV). ?Develop cancer of the penis. ?Get urinary infections. ?Develop inflammation of the penis. What are the risks of circumcision? Circumcision is a safe procedure. However, problems may occur, including: Infection. Bleeding. Removal of too much or too little foreskin. This affects the appearance of the penis. Irritation and narrowing of the urinary opening. This is usually short term. Scarring of the penis. This may affect the way the penis functions. Where to find more information [employer] ([employer]), [place] Male Circumcision: [email or web address].org Summary Male infants are born with a fold of skin that covers the head of the penis. This fold of skin is often removed shortly after with a surgery that is called circumcision. When the foreskin is removed, the head of the penis is easier to wash and keep clean. Some men who are circumcised are less likely to carry viruses, get urinary infections, or develop cancer of the penis. Circumcision is a safe procedure. However, problems may occur, including infection, bleeding, scarring, and irritation and narrowing of the opening of the penis. This information is not intended to replace advice given to you by your health care provider. Make sure you discuss any questions you have with your health care provider. Document Revised: 08/27/2022 Document Reviewed: 08/27/2022 [employer] Patient Education 2023 [employer]. Follow Up Care 05/25/2024 13:54:47 With:ISMAEL PERES, Adrien Gaxiola, URL Address: [facility] [address] , [place] [address]- When: Unknown [facility] 10-02-2024 NoteUrology Office/Clinic Note Chief Complaint [employer] here for evaluation for phimosis HPI Staff 24 year old male new patient presents today for phimosis. He states it has been getting worse for the last 2 months. Dysuria: Denies Incomplete bladder emptying: Denies Hematuria: Denies Frequency: Denies Urgency: Denies Nocturia: rarely, 1 time at night Stream: Good strong stream Leaking: Denies Post void dripping: Denies Abdominal pain: Denies Flank pain: Denies Sexual complaints: Denies History of Present Illness Tests reviewed: UA I have reviewed the previous health record information and history for this patient. I have reviewed and verified the staff HPI to be accurate for this encounter. Review of Systems PHQ Score Initial Depression Screen Score: 0 SCORE ROS - Provider Constitutional: denies weight loss, denies hot flashes. Eyes: denies eye problems. Gastrointestinal: denies nausea, denies vomiting. Cardiovascular: denies chest pain or angina. Integumentary: no dryness Musculoskeletal: denies musculoskeletal symptoms. ENMT: denies otolaryngeal symptoms. Respiratory: no shortness of breath. Heme/Lymph: denies easy bleeding tendency, denies easy bruising tendency. Psychiatric: no confusion, no anxiety. Genitourinary: See HPI. Physical Exam Vitals & Measurements HR: 77(Peripheral) RR: 18 BP: 148/95 HT: 71 in HT: 180 cm WT: 126.2 kg WT: 277.64 lb BMI: 38.95 General Appearance: alert, no distress, well nourished, well developed male. Head: normocephalic . Eyes: normal orbit and globe. ENMT: normal examination of external ears. Chest: Lungs CTA, respirations non labored. Cardiovascular: regular rate and rhythm. Abdomen: soft, non distended, no tenderness, no mass or organomegaly, no hernia. Genitourinary: abnormalsmall scrotum, normal testes, normal urethra, normal epididymis, normal vas deferens/spermatic cord. Flank Pain: none. Bladder: nonpalpable. Penis: normal shaft, abnormalred irritated glans. tears in foreskin noted. unable to retract foreskin due to tightness and pain. Lymph Nodes: unremarkable palpation of the cervical area. Skin: warm, dry, no bruising. Psychiatric: cooperative, affect appropriate for age, normal judgement, euthymic mood. Assessment/Plan Scott is a 24 yo male new pt with hx of type II DM here today due to phimosis. 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 1. Phimosis (N47.1: Phimosis) UA neg. No hx of circumcision. Hx of athletes feet which pt shares is comparable to what he is experiencing with his penis. Unable to retract his foreskin but still able to void wo difficulty. Educated pt diabetes worsens phimosis and fungal infections. Counseled pt on the etiology and progression of phimosis. Will cont to have this issue unless he is circumcised which will also resolve fungal infection. Healing process after circumcision discussed, conservative management with antifungal powder and cream until procedure. Has tried this previously which improved condition then it recurred andsame tx was no longer effective. Warned pt that spontaneous erections may cause further splitting/di scomfort since he does not wish to have the procedure until Sep (due to life events). PE: _thick, tight foreskin with a few small tears distally__. -Conservative management above until surgery. -Pt will call to schedule Circumcision (recommended calling a month in advance). At least one week off from work given he walks frequently. The procedure risks, benefits, and details have been discussed with the patient. These include bleeding, infection, potential separation of the skin edges (which will heal in), change in penile sensation which may affect sexual intercourse and erections, as well as the need for additional procedures, among others. Full informed consent has been obtained. Will order General anesthesia. 2. Balanitis (N48.1: Balanitis) See #1. Fungal. 3. Glucosuria (R81: Glycosuria) UA shows >=1000 glucose. -Tight DM control. Follow-up With When Contact Information ISMAEL PERES, Adrien Gaxiola, URL [facility] [address] [place] [address]- Additional Instructions: Pt will call to schedule Circumcision Patient Education Balanitis Circumcision Information Jammie, Isadora Cardoso, personally scribed for Dr. Pérez on 06/10/2024 09:56:30. Documentation recorded by the scribe, Isadora Cardoso, accurately reflects the services(s) I performed and decisions made by me. Authenticated by Dr. Pérez on 06/10/2024 10:00:32. 09:56:30. Problem List/Past Medical History Ongoing Balanitis Diabetes Phimosis Historical No qualifying data Procedure/Surgical History None. Medications No active medications Allergies No Known Medication Allergies Social History Alcohol - Denies Alcohol Use, 06/10/2024 Substance Abuse - Denies Substance Abuse, 06/10/2024 Tobacco - Denies Tobacco Use, 06/10/2024 (more content not included)...[facility] above:Result Comment: Electronically Signed By: Adrien PÉREZ MD\.br\Date and Time Signed: 06/10/24 10:00 EDT\.br\Electronically Co-Signed By: Isadora Cardoso\.br\Date and Time Co- Signed: 06/10/24 09:57 [id number] NotePatient Education Urology Balanitis Balanitis is swelling and irritation of the head of the penis (glans penis). Balanitis occurs most often among males who have not had their foreskin removed (uncircumcised). In uncircumcised males, the condition may also cause inflammation of the skin around the foreskin. Balanitis sometimes causes scarring of the penis or foreskin, which can require surgery. This condition may develop because of an infection or another medical condition. Untreated balanitis can increase the risk of penile cancer. What are the causes? Common causes of this condition include: ? Irritation and lack of airflow due to fluid (smegma) that can build up on the glans penis. ? Poor personal hygiene, especially in uncircumcised males. Not cleaning the glans penis and foreskin well can result in a buildup of bacteria, viruses, and yeast, which can lead to infection and inflammation. Other causes include: ? Chemical irritation from products such as soaps or shower gels, especially those that have fragrance. Chemical irritation can also be caused by condoms, personal lubricants, petroleum jelly, spermicides, fabric softeners, or laundry detergents. ? Skin conditions, such as eczema, dermatitis, and psoriasis. ? Allergies to medicines, such as tetracycline and sulfa drugs. What increases the risk? The following factors may make you more likely to develop this condition: ? Being an uncircumcised male. ? Having diabetes. ? Having other medical conditions, including liver cirrhosis, congestive heart failure, or kidney disease. ? Having infections, such as candidiasis, HPV (human papillomavirus), herpes simplex, gonorrhea, orsyphilis. ? Having a tight foreskin that is difficult to pull back (retract) past the glans penis. ? Being severely obese. ? History of reactive arthritis. What are the signs or symptoms? Symptoms of this condition include: ? Discharge from under the foreskin, and pain or difficulty retracting the foreskin. ? A bad smell or itchiness on the penis. ? Tenderness, redness, and swelling of the glans penis. ? A rash or sores on the glans penis or foreskin. ? Inability to get an erection due to pain. ? Trouble urinating. ? Scarring of the penis or foreskin, in some cases. How is this diagnosed? This condition may be diagnosed based on a physical exam and tests of a swab of discharge to check for bacterial or fungal infection. You may also have blood tests to check for: ? Viruses that can cause balanitis. ? A high blood sugar (glucose) level. This could be a sign of diabetes, which can increase the riskof balanitis. How is this treated? Treatment for this condition depends on the cause. Treatment may include: ? Improving personal hygiene. Your health care provider may recommend sitting in a bath of warm water that is deep enough to cover your hips and buttocks (sitz bath). ? Medicines such as: ? Creams or ointments to reduce swelling (steroids) or to treat an infection. ? Antibiotic medicine. ? Antifungal medicine. ? Having surgery to remove or cut the foreskin (circumcision). This may be done if you have scarring on the foreskin that makes it difficult to retract. ? Controlling other medical problems that may be causing your condition or making it worse. Follow these instructions at home: Medicines ? Take xbce-eth-pknests and prescription medicines only as told by your health care provider. ? If you were prescribed an antibiotic medicine, use it as told by your health care provider. Do not stop using the antibiotic even if you start to feel better. General instructions ? Do not have sex until the condition clears up, or until your health care provider approves. ? Keep your penis clean and dry. Take sitz baths as recommended by your health care provider. ? Avoid products that irritate your skin or make symptoms worse, such as soaps and shower gels thathave fragrance. ? Keep all follow-up visits. This is important. Contact a health care provider if: ? Your symptoms get worse or do not improve with home care. ? You develop chills or a fever. ? You have trouble urinating. ? You cannot retract your foreskin. Get help right away if: ? You develop severe pain. ? You are unable to urinate. Summary ? Balanitis is swelling and irritation of the head of the penis (glans penis). This condition is most common among uncircumcised males. ? Balanitis causes pain, redness, and swelling of the glans penis. ? Good personal hygiene is important. ? Treatment may include improving personal hygiene and applying creams or ointments. ? Contact a health care provider if your symptoms get worse or do not improve with home care. This information is not intended to replace advice given to you by your health care provider. Make sure you discuss any questions you have with your health care provider. Document Revised: 02/07/2022 Document Reviewed: (more content not included)... [facility] complaint+Reason for visit Narrative* Chief Complaint Chills, Lightheaded Heart Palpitations, Self-Referral Reason for Visit Palpitations [facility] Work Phone: Chief complaint+Reason for visit Narrative* Chief Complaint Chills, Lightheaded Heart Palpitations, Self-Referral Reason for Visit Pre-diabetes Palpitations [facility] Work Phone: Evaluation + Plan note No data available for this section [facility] Evaluation noteNo assessment information available [facility] Work Phone: Evaluation note* Diagnosis Onset Date Resolution Status Palpitations noneactive [facility] Work Phone: Evaluation note* Diagnosis Onset Date Resolution Status Pre-diabetes acute Palpitations noneactive [facility] Work Phone: Progress note No data available for this section [facility] Chief Complaint and Reason for Visit Chief Complaint Chills, Lightheaded Chief Complaint Admit Date Labs at [facility] (referred by ER), Confirmed September 03, 2024 8:34am Dexcom September 07, 2024 3:20pm METER September 16, 2024 8: 02am Reason for Visit Admit Date Phimosis September 03, 2024 8:34am Pre-diabetes September 03, 2024 8:34am Type 2 diabetes mellitus with hyperglyce jeanmarie September 03, 2024 8:34am Vitamin D deficiency, unspecified Decemb er 2023 8:34am Type 2 diabetes mellitus with hyperglyce jeanmarie September 07, 2024 3:20pm Type 2 diabetes mellitus with hyperglyce jeanmarie September 16, 2024 8:02am Advance Directives No Advanced Directives Records Found Advance Directive Response Recorded Date/ Time Advance Directives No December 24 11:01am Advance Directive Response Recorded Date/ Time Advance Directives No December 24 10:01am Summary Purpose Family History No Family History Records Found Relationship Condition Age at Onset Recorded Date/T bello father Diabetes mellitus Unknown Not Specified Diabetes mellitus Unknown Relationship Condition Age at Onset Recorded Date/T bello father Diabetes mellitus Unknown mother Diabetes mellitus Unknown brother Diabetes mellitus Unknown maternal grandfather Malignant neoplasm Unknown Malignant neoplasm of lung Unknown Unknown Current smoker Unknown Additional Source Comments Care Teams (unrecognized sec tion and content) Team Status: Active Member Role Status Dates PHYSICIAN NO FAMILY Primary Care Provider Active Team Status: Inactive Member Role Status Dates PHYSICIAN NO FAMILY Primary Care Provider Active Start: December 26, 2023 End: December 26, 2023 Fredrick Morris DO Emergency Provider Active Sta rt: December 26, 2023 End: December 26, 2023 Team Status: Inactive Member Role Status Dates PHYSICIAN NO FAMILY Primary Care Provider Active Start: January 14, 2024 End: January 14, 2024 Alexander Hall MD Attending Provider Activ e Start: January 14, 2024 End: January 14, 2024 Team Status: Active Member Role Status Dates PHYSICIAN NO FAMILY Primary Care Provider Active Start: January 14, 2024 Alexander Hall MD Attending Provider Activ e Start: January 14, 2024 Team Status: Active Member Role Status Dates Alexander Hall MD [employer] Active PHYSICIAN NO FAMILY Primary Care Provider Active Team Status: Inactive Member Role Status Dates PHYSICIAN NO FAMILY Primary Care Provider Active Start: September 03, 2024 End: September 03, 2024 Aura Joya APRN Attending Provider Active Start: September 03, 2024 End: September 03, 2024 Team Status: Inactive Member Role Status Dates PHYSICIAN NO FAMILY Primary Care Provider Active Start: September 07, 2024 End: September 07, 2024 Alverto Wood RN Attending Provider Active St art: September 07, 2024 End: September 07, 2024 Aura Joya APRN Active Star t: September 07, 2024 End: September 07, 2024 Team Status: Inactive Member Role Status Dates PHYSICIAN NO FAMILY Primary Care Provider Active Start: September 16, 2024 End: September 16, 2024 Alverto Wood RN Attending Provider Active St art: September 16, 2024 End: September 16, 2024 Aura Joya APRN Active Star t: September 16, 2024 End: September 16, 2024 Goals (unrecognized section and content) Goals may be documented in a n alternate sectionGoals may be documented in an alternate sectionGoals may be documented in an alternate section No data available for this sectionGoals may be documented in an alternate section (unrecognized sect ion and content) No Status Records FoundNo Status Records Found INFORMATION SOURCE (unrecogn ized section and content) DATE CREATED AUTHOR 01/16/2024 [facility] DATE CREATED AUTHOR AUTHOR'S ORGANIZ ATION 09/21/2024 [facility] FOR RECORDS PERTAINING TO PATIENTS WHO ARE OR HAVE BEEN ENROLLED IN A CHEMICAL DEPENDENCY/SUBSTANCEABUSE PROGRAM, SOME INFORMATION MAY BE OMITTED. This clinical summary was aggregated from multiple sources. Caution should be exercised in using it in the provision of clinical care. This summary normalizes information from multiple sources, and as a consequence, information in this document may materially change the coding, format and clinical context of patient data. In addition, data may be omitted in some cases. CLINICAL DECISIONS SHOULD BE BASED ON THE PRIMARY CLINICAL RECORDS. [facility] [employer] [facility]. provides no warranty or guarantee of the accuracy or completeness of information in this document.
[2024-09-24 08:30] LABS: Glucometer 148 mg/dL (74-106)
[2024-09-24] MEDS: LACTATED RINGER'S SOLUTION 1,000 ML 50 ML IV (08:41)
[2024-09-24] MEDS: CEFAZOLIN SODIUM 2 GM/50 ML D5W PREMIX IV (08:41)
[2024-09-24] MEDS: LACTATED RINGER'S SOLUTION 1,000 ML 1000 ML IV (09:48)
[2024-09-24] MEDS: MINERAL OIL LIGHT STERILE 10 ML VIAL TOPICAL (10:17)
[2024-09-24] MEDS: BACITRACIN OINTMENT 28.4 GM TUBE 1 APPLIC TOPICAL (10:38)
--- NOTE | 2024-09-24 10:57 | PM.URSON ---
Urology Surgery Operative Note Operative Note Procedure Date: 09/24/24 Time Out Performed: yes Pre-op Diagnosis: Phimosis Post-op Diagnosis: same as pre-op Procedures performed: 1. Circumcision. Anesthesia: General-LMA Primary Surgeon: Adrien Pérez Complications: None Estimated blood loss (mL): 15 Findings: 1. Torsed penis. 2. Thick indurated and very friable foreskin. Specimens: Foreskin Drains: None Indications for Procedures: This gentleman is uncircumcised and has phimosis. He experiences splitting and cracking and fungal infection. He is highly desirous for circumcision. He has signed an informed consent after risks were explained. Detailed description of Procedure: The patient was brought to the operating room and placed on the operating room table in the supine position. Timeout was done by all parties in the room. We all agreed upon the patient's identification and the planned procedures for this patient. General anesthesia was then administered. The genitalia were then sterilely prepped and draped in the usual fashion. I started by marking a line along his external foreskin surface. This was done over the coronal sulcus. At this point I noticed that his penis was torsed by about 45 degrees. 15 blade scalpel was then used to make an incision along the celeste. Small bleeders were coagulated with the needle tip Bovie cautery. The foreskin was then retracted over the shaft and the mucosal surface was exposed. A line at 5 mm proximal to the coronal sulcus was then marked and a similar circumscribing incision was made. The sleeve of tissue was sharply dissected out circumferentially and then transected and amputated. The foreskin was sent for permanent sections. The edges of the foreskin were then rejoined with 4-0 Vicryl dipped in mineral oil. 2 stay sutures were placed 1 at 6:00 and 1 at 12:00. The rest of the edges were then ran with the same suture. Upon completion there was an excellent repair. The torsion of the penis was resolved after removal of his constricting foreskin. Bacitracin ointment was applied over the suture line as well as a Vaseline gauze and then a plain gauze. He was then transferred to a rbedrock bed and wheeled to PACU in stable condition. He will get discharged to home later with a prescription for Toradol 10 mg twice daily as needed #6. Follow-up will be in a month for reevaluation.
--- NOTE | 2024-09-24 11:56 | PC.NURSE ---
Denies urge to void
== END 2024-09-24 12:57 | disposition home or self-care (01) ==
PROVIDERS: Visit Provider Urology
PROC: (CPT 920; principal; 2024-09-24 09:00)
DX: N47.1 Phimosis (principal); N48.1 Balanitis; E11.9 Type 2 diabetes mellitus without complications; Z79.85 Long-term (current) use of injectable non-insulin antidiabetic drugs
CPT/HCPCS: 54161; 36415; 82948; 88304; J0690; J1100; J1171; J1885; J2250; J2371; J2405; J2704; J3010